=== PATIENT | male | born 1940 | race Caucasian/White ===

== ENCOUNTER → 2016-08-06 10:02 | Outpatient (CLI) | payer MEDICARE | END | disposition home or self-care (01) | LOC: D.RAD 10:02 | DX: F17.200 Nicotine dependence, unspecified, uncomplicated (principal) ==

== ENCOUNTER → 2016-08-21 13:35 | Outpatient (CLI) | payer MEDICARE | END | disposition home or self-care (01) | LOC: D.US 13:35 | DX: I73.9 Peripheral vascular disease, unspecified (principal); M62.81 Muscle weakness (generalized) ==

== ENCOUNTER → 2017-06-29 12:36 | Outpatient (CLI) | payer MEDICARE ==
[2017-07-08 21:09] LABS: IMMUNOGLOBULIN E 81 IU/mL (0-100)
== END | disposition home or self-care (01) ==
LOC: D.RT 12:36
PROVIDERS: Internal Medicine Pulmonary Disease
DX: J44.9 Chronic obstructive pulmonary disease, unspecified (principal)

== ENCOUNTER → 2018-10-20 12:43 | Outpatient (CLI) | payer MEDICARE | END | disposition home or self-care (01) | LOC: D.RAD 07-29 13:30 → D.RT 07-29 14:00 → D.RAD 09-08 10:15 → D.RT 12:43 | PROVIDERS: ATTEND Nurse Practitioner Acute Care | DX: J44.9 Chronic obstructive pulmonary disease, unspecified (principal) ==